=== PATIENT | female | born 1985 | race African-American/Black ===

== ENCOUNTER 2019-06-11 04:12 | Emergency (ER) | payer OTHER ==
[~2019-06-11] VITALS: Ht 180.3 cm; Wt 170.6 kg
[~2019-06-11 04:12] MED LIST: ASPIRIN EC325 M1 PO; DEPAKENE250 MG/5 M PO; HYDROCHLOROTHIA25 M2 PO; LIPITOR20 MG PO; LISINOPRIL20 MG PO; METFORMIN HCL500 MG PO; NOHOMEMEDICATIONS
[2019-06-11 04:13] VITALS: BP 134/98
== END 2019-06-11 04:48 | disposition home or self-care (01) ==
LOC: ER 04:12
DX: T19.2XXA Foreign body in vulva and vagina, initial encounter (principal); E11.9 Type 2 diabetes mellitus without complications; F31.9 Bipolar disorder, unspecified; J45.909 Unspecified asthma, uncomplicated; G43.909 Migraine, unspecified, not intractable, without status migrainosus; F17.210 Nicotine dependence, cigarettes, uncomplicated; Z86.73 Personal history of transient ischemic attack (TIA), and cerebral infarction without residual deficits; Z88.5 Allergy status to narcotic agent; Z88.8 Allergy status to other drugs, medicaments and biological substances; Y92.89 Other specified places as the place of occurrence of the external cause

== ENCOUNTER 2019-07-02 09:47 | Emergency (ER) | payer OTHER ==
[~2019-07-02] VITALS: Ht 180.3 cm; Wt 175.1 kg
[2019-07-02 10:12] LABS: URINE BILIRUBIN NEGATIVE (Negative); URINE BLOOD NEGATIVE (Negative); URINE CLARITY CLEAR; URINE COLOR YELLOW; URINE GLUCOSE-RANDOM* NEGATIVE (Negative); URINE KETONES NEGATIVE (Negative); URINE LEUKOCYTES NEGATIVE (Negative); URINE NITRITE NEGATIVE (Negative); URINE PROTEIN (DIPSTICK) NEGATIVE (Negative); URINE UROBILINOGEN 0.2 E.U./dl (0.2-1.0)
[2019-07-02 10:23] LABS: CALCIUM 9.4 mg/dL (8.5-10.1); CREATININE 1.1 mg/dL (0.6-1.0); HEMATOCRIT 39.6 % (37.0-47.0); HEMOGLOBIN 13.3 gm/dL (12.0-15.0); MCH 28.9 pg (26.0-34.0); MCHC 33.6 g/dL (28.0-37.0); PLATELET COUNT 514 thou/uL (150-400); POTASSIUM 3.7 mmol/L (3.5-5.1); RBC 4.61 mil/uL (4.20-5.00); RDW 14.6 % (10.5-14.5); WBC 7.7 thou/uL (4.0-11.0)
[2019-07-02 10:30] LABS: ALBUMIN 3.6 g/dL (3.4-5.0); TOTAL BILIRUBIN 0.1 mg/dL (<0.1-1.0); TOTAL PROTEIN 8.3 g/dL (6.4-8.2)
[2019-07-02 10:44] LABS: ABSOLUTE NEUTROPHILS 4.2 thou/uL (1.4-8.2); PLATELET ESTIMATE NORMAL
[2019-07-02] MEDS ORDERED: NAPROSYN500 MG PO (12:30)
[2019-07-02 12:31] VITALS: BP 131/81
== END 2019-07-02 12:31 | disposition home or self-care (01) ==
LOC: ER 09:47
PROVIDERS: Emergency Medicine
DX: R10.2 Pelvic and perineal pain (principal); F17.210 Nicotine dependence, cigarettes, uncomplicated; F31.9 Bipolar disorder, unspecified; J45.909 Unspecified asthma, uncomplicated; G43.909 Migraine, unspecified, not intractable, without status migrainosus; E11.9 Type 2 diabetes mellitus without complications; Z86.73 Personal history of transient ischemic attack (TIA), and cerebral infarction without residual deficits; Z88.8 Allergy status to other drugs, medicaments and biological substances

== ENCOUNTER 2019-07-31 13:54 | Emergency (ER) | payer OTHER ==
[~2019-07-31] VITALS: Ht 175.3 cm; Wt 104.3 kg
[~2019-07-31 13:54] MED LIST changes: +NAPROSYN500 MG PO
[2019-07-31] MEDS ORDERED: KEFLEX500 M1 PO (17:06)
[2019-07-31] MEDS ORDERED: TRAMADOL 50 MG50 MG PO (17:06)
[2019-07-31 17:23] VITALS: BP 138/92
== END 2019-07-31 17:20 | disposition home or self-care (01) ==
LOC: ER 13:54
DX: S01.511A Laceration without foreign body of lip, initial encounter (principal); F31.9 Bipolar disorder, unspecified; J45.909 Unspecified asthma, uncomplicated; G43.909 Migraine, unspecified, not intractable, without status migrainosus; E11.9 Type 2 diabetes mellitus without complications; Z86.73 Personal history of transient ischemic attack (TIA), and cerebral infarction without residual deficits; X99.1XXA Assault by knife, initial encounter; Y92.000 Kitchen of unspecified non-institutional (private) residence as the place of occurrence of the external cause; Y93.89 Activity, other specified; Y99.8 Other external cause status

== ENCOUNTER 2019-10-04 17:36 | Emergency (ER) | payer OTHER ==
[~2019-10-04] VITALS: Ht 180.3 cm; Wt 160.6 kg
[~2019-10-04 17:36] MED LIST changes: +KEFLEX500 M1 PO; +TRAMADOL 50 MG50 MG PO
[2019-10-04 19:36] LABS: URINE BILIRUBIN NEGATIVE (Negative); URINE BLOOD NEGATIVE (Negative); URINE CLARITY CLEAR; URINE COLOR YELLOW; URINE GLUCOSE-RANDOM* NEGATIVE (Negative); URINE KETONES NEGATIVE (Negative); URINE LEUKOCYTES-REFLEX NEGATIVE (Negative); URINE NITRITE-REFLEX NEGATIVE (Negative); URINE PROTEIN (DIPSTICK) NEGATIVE (Negative); URINE UROBILINOGEN 0.2 E.U./dl (0.2-1.0)
[2019-10-04 19:37] LABS: CALCIUM 9.9 mg/dL (8.5-10.1); CREATININE 1.3 mg/dL (0.6-1.0); POTASSIUM 3.2 mmol/L (3.5-5.1)
[2019-10-04 19:43] LABS: ALBUMIN 3.8 g/dL (3.4-5.0); DIRECT BILIRUBIN 0.1 mg/dL (<0.1-0.2); TOTAL BILIRUBIN 0.3 mg/dL (<0.1-1.0)
[2019-10-04] MEDS ORDERED: IBUPROFEN 800800 M1 PO (19:49)
[2019-10-04 19:50] LABS: ABSOLUTE NEUTROPHILS 4.5 thou/uL (1.4-8.2); BASOPHILS 1.3 % (0.0-2.0); EOSINOPHILS 3.4 % (0.0-3.0); HEMATOCRIT 41.3 % (37.0-47.0); HEMOGLOBIN 13.8 gm/dL (12.0-15.0); LYMPHOCYTES 34.5 % (24.0-44.0); MCH 28.6 pg (26.0-34.0); MCHC 33.3 g/dL (28.0-37.0); MCV 85.9 fL (80.0-100.0); MONOCYTES 7.9 % (1.0-8.0); PLATELET COUNT 413 thou/uL (150-400); POLYS 52.9 % (36.0-66.0); RBC 4.81 mil/uL (4.20-5.00); RDW 15.4 % (10.5-14.5); WBC 8.6 thou/uL (4.0-11.0)
[2019-10-04 21:55] VITALS: BP 116/74
== END 2019-10-04 21:57 | disposition home or self-care (01) ==
LOC: ER 17:36
PROVIDERS: Emergency Medicine
DX: R53.1 Weakness (principal); E11.9 Type 2 diabetes mellitus without complications; D57.3 Sickle-cell trait; J45.909 Unspecified asthma, uncomplicated; G43.909 Migraine, unspecified, not intractable, without status migrainosus; F31.9 Bipolar disorder, unspecified; F17.210 Nicotine dependence, cigarettes, uncomplicated; Z86.73 Personal history of transient ischemic attack (TIA), and cerebral infarction without residual deficits; Z88.6 Allergy status to analgesic agent

== ENCOUNTER 2019-11-21 07:59 | Emergency (ER) | payer OTHER ==
[~2019-11-21] VITALS: Ht 170.2 cm; Wt 111.1 kg
[~2019-11-21 07:59] MED LIST changes: +IBUPROFEN 800800 M1 PO
[2019-11-21 09:25] LABS: URINE BILIRUBIN NEGATIVE (Negative); URINE BLOOD 2+ (Negative); URINE CLARITY CLEAR; URINE COLOR YELLOW; URINE GLUCOSE-RANDOM* NEGATIVE (Negative); URINE KETONES NEGATIVE (Negative); URINE LEUKOCYTES-REFLEX NEGATIVE (Negative); URINE NITRITE-REFLEX NEGATIVE (Negative); URINE PROTEIN (DIPSTICK) NEGATIVE (Negative); URINE SPECIFIC GRAVITY 1.015 (1.005-1.035); URINE UROBILINOGEN 0.2 E.U./dl (0.2-1.0)
[2019-11-21 09:44] LABS: HEMOGLOBIN 13.1 gm/dL (12.0-15.0); MCH 28.7 pg (26.0-34.0); MCHC 33.6 g/dL (28.0-37.0); MCV 85.6 fL (80.0-100.0); RBC 4.56 mil/uL (4.20-5.00); RDW 15.5 % (10.5-14.5); WBC 10.4 thou/uL (4.0-11.0)
[2019-11-21 09:47] LABS: CASTS None Seen /LPF (None Seen); SQUAMOUS 4-10 Moderate /LPF (0-3)
[2019-11-21 09:48] LABS: BACTERIA-REFLEX 1-9 Few /HPF (None Seen); URINE RBC 0-2 Rare /HPF (0-2); URINE WBC-REFLEX 0-5 Rare /HPF (0-5)
[2019-11-21 10:01] LABS: ANION GAP 9 mmol/L (7-16); BUN 13 mg/dL (7-18); CALCIUM 9.3 mg/dL (8.5-10.1); CHLORIDE 101 mmol/L (98-107); CO2 27 mmol/L (21-32); CREATININE 1.2 mg/dL (0.6-1.0); GLUCOSE 128 mg/dL (74-106); POTASSIUM 3.3 mmol/L (3.5-5.1); SODIUM 137 mmol/L (136-145)
[2019-11-21 10:11] LABS: TROPONIN-I <0.06 ng/mL (<0.06)
--- NOTE | 2019-11-21 11:22 | EKG ---
[facility] [place] [address] ELECTROCARDIOGRAM REPORT Name: VISH ALCAZAR Room #: [facility]#: [id number] Admission: 11/21/19 Attend Phys: Discharge: Date of : 89 Report #: [id number] THIS REPORT FOR: cc: Vicente Moreno Brady DO Couchonnal,Ayden Flores MD ~ THIS REPORT FOR: //name// [facility] Test Date: 2019-11-21 Test Time: 09:13:55 Pat Name: VISH ALCAZAR Department: Room: Gender: F [employer]: [facility] : 1985 Requested By: Michael Brenner Order Number: [id number] MD: Ayden Arroyo Measurements Intervals [place] Rate: 105 P: 49 CA: 156 QRS: 32 QRSD: 100 T: 13 QT: 344 QTc: 455 Interpretive Statements Sinus tachycardia Compared to ECG 01/10/2012 12:31:43 Sinus bradycardia no longer present Sinus arrhythmia no longer present Electronically Signed On 11-21-2019 11:21:06 MUSIC INTERN by Ayden Arroyo [email or web address] <ELECTRONICALLY SIGNED> By: Ayden Arroyo MD 11/21/19 1121 2 2 Ayden Arroyo MD /EPI
[2019-11-21] MEDS ORDERED: IBUPROFEN 800800 M1 PO (13:49)
[2019-11-21] MEDS ORDERED: ULTRAM 50MG TAB50 MG PO (13:49)
[2019-11-21 14:49] VITALS: BP 111/52
== END 2019-11-21 15:06 | disposition home or self-care (01) ==
LOC: ER 07:59
PROVIDERS: Emergency Medicine
DX: N92.1 Excessive and frequent menstruation with irregular cycle (principal); E11.9 Type 2 diabetes mellitus without complications; E66.01 Morbid (severe) obesity due to excess calories; D57.3 Sickle-cell trait; J45.909 Unspecified asthma, uncomplicated; G43.909 Migraine, unspecified, not intractable, without status migrainosus; F31.9 Bipolar disorder, unspecified; F17.210 Nicotine dependence, cigarettes, uncomplicated; Z68.38 Body mass index [BMI] 38.0-38.9, adult; Z86.73 Personal history of transient ischemic attack (TIA), and cerebral infarction without residual deficits; Z88.6 Allergy status to analgesic agent

== ENCOUNTER 2020-05-25 09:26 | Emergency (ER) | payer OTHER ==
[~2020-05-25] VITALS: Ht 180.3 cm; Wt 161.5 kg
[~2020-05-25 09:26] MED LIST changes: +ULTRAM 50MG TAB50 MG PO
[2020-05-25 09:28] VITALS: BP 144/102
[2020-05-25] MEDS ORDERED: LISINOPRIL20 MG PO (10:26)
[2020-05-25] MEDS ORDERED: HYDROCHLOROTHIA25 M2 PO (10:26)
[2020-05-25] MEDS ORDERED: ERYTHROMYCIN E3.5 G3 OPHTHALMIC (10:26)
== END 2020-05-25 10:33 | disposition home or self-care (01) ==
LOC: ER 09:26
DX: H01.001 Unspecified blepharitis right upper eyelid (principal); J45.909 Unspecified asthma, uncomplicated; G43.909 Migraine, unspecified, not intractable, without status migrainosus; E11.9 Type 2 diabetes mellitus without complications; F17.210 Nicotine dependence, cigarettes, uncomplicated; Z79.899 Other long term (current) drug therapy; Z88.5 Allergy status to narcotic agent

== ENCOUNTER 2020-11-11 16:23 | Emergency (ER) | payer OTHER ==
[~2020-11-11] VITALS: Ht 180.3 cm; Wt 168.7 kg
[~2020-11-11 16:23] MED LIST changes: +ERYTHROMYCIN E3.5 G3 OPHTHALMIC
[2020-11-11 18:19] LABS: HEMATOCRIT 38.1 % (37.0-47.0); HEMOGLOBIN 12.4 gm/dL (12.0-15.0); MCH 26.7 pg (26.0-34.0); MCHC 32.6 g/dL (28.0-37.0); MCV 81.8 fL (80.0-100.0); PLATELET COUNT 549 thou/uL (150-400); RBC 4.65 mil/uL (4.20-5.00); RDW 16.1 % (10.5-14.5)
[2020-11-11 18:25] LABS: ANION GAP 8 mmol/L (7-16); BUN 9 mg/dL (7-18); CALCIUM 9.7 mg/dL (8.5-10.1); CHLORIDE 101 mmol/L (98-107); CO2 28 mmol/L (21-32); CREATININE 1.1 mg/dL (0.6-1.0); GLUCOSE 91 mg/dL (74-106); POTASSIUM 3.6 mmol/L (3.5-5.1); SODIUM 137 mmol/L (136-145)
[2020-11-11 18:36] LABS: ALBUMIN 3.5 g/dL (3.4-5.0); SGOT 22 U/L (15-37); SGPT 31 U/L (14-59); TOTAL BILIRUBIN 0.2 mg/dL (0.2-1.0); TOTAL PROTEIN 8.5 g/dL (6.4-8.2); TROPONIN-I <0.06 ng/mL (<0.06)
[2020-11-11 19:05] LABS: ABSOLUTE NEUTROPHILS 6.7 thou/uL (1.4-8.2)
[2020-11-11 19:42] VITALS: BP 163/105
--- NOTE | 2020-11-12 07:21 | EKG ---
[place] [address] [address] [facility] [place] [address] ELECTROCARDIOGRAM REPORT Name: VISH ALCAZAR Room #: [facility]#: [id number] Admission: 11/11/20 Attend Phys: Discharge: 11/11/20 Date of : [birth year] Report #: [id number] [facility] ED Test Date: 2020-11-11 Test Time: 16:29:31 Pat Name: VISH ALCAZAR Department: Room: Gender: F [employer]ishing Range [employer]: kf : 1985 Requested By: Michael Brenner Order Number: [id number] MD: Brian Basilio Measurements Intervals [place] Rate: 93 P: 46 HI: 159 QRS: 21 QRSD: 81 T: 2 QT: 354 QTc: 441 Interpretive Statements Sinus rhythm Probable left atrial enlargement Borderline T wave abnormalities Compared to ECG 11/21/2019 09:13:55 T-wave abnormality now present Sinus tachycardia no longer present Electronically Signed On 11-12-2020 7:21:27 ACCOUNT LIAISON by Brian Basilio [email or web address] <ELECTRONICALLY SIGNED> By: Brian Basilio MD, [facility] 11/12/20 0721 1629 1629 Brian Basilio MD, FAC /EPI
== END 2020-11-11 20:04 | disposition home or self-care (01) ==
LOC: ER 16:23
PROVIDERS: Emergency Medicine
DX: R07.89 Other chest pain (principal); E11.9 Type 2 diabetes mellitus without complications; J45.909 Unspecified asthma, uncomplicated; G43.909 Migraine, unspecified, not intractable, without status migrainosus; F17.210 Nicotine dependence, cigarettes, uncomplicated; Z79.899 Other long term (current) drug therapy; Z88.5 Allergy status to narcotic agent